=== PATIENT | female | born 1990 | race African-American/Black ===

== ENCOUNTER 2023-06-13 10:34 | Emergency (ER) | payer MEDICAID ==
[~2023-06-13] VITALS: Ht 170.2 cm; Wt 58.5 kg
[2023-06-13 10:40] VITALS: O2SAT 98
[2023-06-13] MEDS ORDERED: DICL75TA5 MT (12:38)
[2023-06-13] MEDS ORDERED: CYCL5TAB MT (12:38)
[2023-06-13 12:49] VITALS: TEMP 98.2
[2023-06-13 12:51] VITALS: BP 100/67; PULSE 77; RESP 16
[2023-06-13] MEDS: KETOROLAC 60MG/2ML VIAL IM ONE (12:51)
== END 2023-06-13 13:08 | disposition home or self-care (01) ==
LOC: ER 10:57
DX: M54.9 Dorsalgia, unspecified (principal); V49.9XXA Car occupant (driver) (passenger) injured in unspecified traffic accident, initial encounter; Y93.89 Activity, other specified; Y92.89 Other specified places as the place of occurrence of the external cause; Y99.8 Other external cause status
CPT/HCPCS: 99283; 81025; 96372; J1885